=== PATIENT | female | born 1985 | race Caucasian/White ===

== ENCOUNTER 2021-01-21 16:00 | Emergency (ER) | payer MEDICAID, SELFPAY ==
[2021-01-21 16:03] VITALS: BP 151/97; PULSE 65; RESP 18; TEMP 36.4; O2SAT 100; BMI 23.9
--- NOTE | 2021-01-21 16:34 | [facility].EDGENADL ---
ED Disposition Clinical Impression: Right otitis media with effusion Disposition: Home, Self-Care Condition on Discharge: Good Instructions: DI for Middle Ear Infection-Adult Additional Instructions: Amoxicillin as prescribed. Ibuprofen or Tylenol for pain or fever. Follow-up with primary care provider if not improving in 4 to 5 days. Prescriptions: Amoxicillin [Amoxicillin 500mg Cap] 500 mg PO TID #30 cap Transmission Status: Pending to [id number] Referrals: Chris Barnes MD [Primary Care Provider] - - Critical Care Critical Care Time: No Attestation: On 01/21/21, the high probability of a clinically significant, sudden or life threatening deterioration of the following system(s) required my full and direct attention, intervention and personal management. The time I documented below is in addition to time spent performing reported procedures but includes the following listed in this critical care notation. Medical Decision Making - Dimitri Inquiry Pt receiving controlled substance: No Vital Signs: 01/21/21 16:03 Temperature 97.5 F L Temperature Source Oral Pulse Rate [Right] 65 Respiratory Rate 18 Blood Pressure [Right Arm] 151/97 H Blood Pressure Mean [Right Arm] 115 02 Sat by Pulse Oximetry 100 Oxygen Delivery Method Room Air General Adult HPI - General Stated complaint: pain in right ear Time Seen by Provider: 01/21/21 16:34 - History of Present Illness HPI narrative: Right earache for 1 week. Low-grade fever of 100.1 this morning. Denies rhinorrhea or other URI symptoms. Decreased hearing in the right ear. She says it feels like there is something in it. No prior history of otitis media or ear problems. She took Tylenol this morning. Otherwise she is healthy on no medications. - Related Data Previous Rx's Medication Instructions Recorded Amoxicillin [Amoxicillin 500mg 500 mg PO TID #30 cap 01/21/21 Cap] Allergies Allergy/AdvReac Type Severity Reaction Status Date / Time No Known Allergies Allergy Verified 01/21/21 16:46 [facility] History - Hepatitis A Screen Attestation statement:: This patient has been screened for Hepatitis A risk factors. I have reviewed the patient's past medical history: Yes ROS Obtained: Yes Systems reviewed as appropriate & no additional complaints - Constitutional Constitutional: Reports fever(s) - ENT Ears, Nose, Mouth, and Throat: Reports abnormal hearing, Reports otalgia, Denies nasal discharge, Denies sore throat Physical Exam - General General appearance: alert, in no apparent distress - Head Head exam: atraumatic, normocephalic - Eye Eye exam: Present: normal appearance, EOMI - ENT ENT exam: Present: mucous membranes moist - Expanded ENT Exam TM/Canal exam: Right TM: erythema, effusion, loss of landmarks Comment: no foreign body or cerumen impaction or perforation. - Neck Neck exam: Present: normal inspection, full ROM. Absent: meningismus, lymphadenopathy - Respiratory Respiratory exam: Absent: respiratory distress - Cardiovascular Cardiovascular exam: Present: regular rate - Extremities Exam Extremities exam: Present: normal inspection - Neurological Exam Neurological exam: Present: alert, oriented X3 - Psychiatric Psychiatric exam: Present: normal affect, normal mood - Skin Skin exam: Present: warm, dry
[2021-01-21 16:51] VITALS: BP 151/97; PULSE 65; RESP 18; TEMP 36.4; O2SAT 100
== END 2021-01-21 16:53 | disposition home or self-care (01) ==
PROVIDERS: Emergency Provider Emergency Medicine; PCP Pediatrics
DX: H65.91 Unspecified nonsuppurative otitis media, right ear (principal)
CPT/HCPCS: 99281